=== PATIENT | female | born 2000 | race Caucasian/White ===

== ENCOUNTER 2022-05-28 08:51 | Emergency (ER) | payer OTHER, SELFPAY ==
[2022-05-28 09:03] VITALS: BP 114/73; PULSE 86; RESP 16; TEMP 36.8; O2SAT 100
--- NOTE | 2022-05-28 09:50 | ED.URI ---
HPI - URI/Sore Throat General Chief Complaint: Upper Respiratory Infection Stated Complaint: SORE THROAT/WHITE SPOTS IN THROAT Time Seen by Provider: 05/28/22 09:46 Source: patient Mode of arrival: ambulatory Limitations: no limitations History of Present Illness HPI Narrative: Patient presents today complaining of a 2 day history of sore throat, headache, body aches, and white spots in her throat. She currently rates pain 4/10 and has been taking Sudafed and cough drops. Pain increases with swallowing. Related Data Home Medications Medication Instructions Recorded Confirmed multivitamin (Daily Multi-Vitamin 1 tablet PO DAILY 03/14/21 05/28/22 tablet) viloxazine 200 mg capsule,extended 200 mg PO DAILY 03/18/22 05/28/22 release 24 hr (Qelbree) escitalopram oxalate 10 mg tablet 10 mg PO DIRECTED 05/28/22 05/28/22 Allergies Allergy/AdvReac Type Severity Reaction Status Date / Time codeine Allergy Rash Verified 05/28/22 09:51 Review of Systems Review of Systems: CONSTITUTIONAL: Denies fever, chills, or sweats.+ body aches EYES: Denies visual changes, redness, or discharge. ENT: Denies rhinorrhea, congestion, or otalgia.+ sore throat CARDIOVASCULAR: Denies chest pain, palpitations, or edema. RESPIRATORY: Denies cough or dyspnea. GASTROINTESTINAL: Denies abdominal pain, nausea, vomiting, or diarrhea. GENITOURINARY: Denies dysuria or hematuria. SKIN: Denies rash, itching, or wounds. MUSCULOSKELETAL: Denies back pain, joint pain, or myalgia. NEUROLOGIC: Denies numbness, tingling, or weakness.+ headache PSYCH: Denies depression or anxiety. [facility] Past Medical History Medical History ADHD Anxiety Herpes 2019 Family History Family History Grandparent Carcinoma of colon Heart attack Father High cholesterol Social History Social History Smoking status: Never smoker Alcohol intake: current Substance use: never Comments At time of signature, I have reviewed and agree with nursing past medical, surgical, social and family history unless otherwise noted. Please see nursing chart for further information. There is no relevant family history pertinent to the presenting complaint Exam Narrative: GENERAL: Well-appearing, well-nourished, and in no acute distress. HEAD: Normocephalic, atraumatic. EYES: EOMI. No redness or drainage. Conjunctivae normal. ENT: Mucous membranes pink and moist. Nares clear. No rhinorrhea. TMs normal bilaterally. Throat mildly erythematous edema exudate. Uvula midline. NECK: Normal AROM. Supple. No lymphadenopathy. CHEST: No respiratory distress. Clear to auscultation. HEART: Regular rate and rhythm. No murmur appreciated. Normal peripheral pulses. EXTREMITIES: Normal range of motion. No edema. SKIN: Warm, dry, no rash. Capillary refill normal. Normal skin turgor. NEURO: No focal deficits. Alert and oriented x3. Gait steady. PSYCH: Normal affect. No signs of depression or anxiety. Course Course Level of Care: Express Care Visit Vital Signs Vital signs: Vital Signs Temperature 98.2 F 05/28/22 09:03 Pulse Rate 86 05/28/22 09:03 Respiratory Rate 16 05/28/22 09:03 Blood Pressure 114/73 05/28/22 09:03 Pulse Oximetry 100 05/28/22 09:03 Oxygen Delivery Room Air 05/28/22 09:03 Temperature 98.2 F 05/28/22 09:03 Pulse Rate 86 05/28/22 09:03 Respiratory Rate 16 05/28/22 09:03 Blood Pressure 114/73 05/28/22 09:03 Pulse Oximetry 100 05/28/22 09:03 Oxygen Delivery Room Air 05/28/22 09:03 Reviewed MDM - URI/Sore Throat Differential Diagnosis Differential diagnosis: Likely upper respiratory infection, otitis media, viral infection, pharyngitis and other (Strep throat) Lab Data Attestation: I reviewed the patient's lab results. Lab
== END 2022-05-28 10:14 | disposition home or self-care (01) ==
PROVIDERS: Emergency Provider Nurse Practitioner; PCP Nurse Practitioner Family
DX: J02.8 Acute pharyngitis due to other specified organisms (principal); F41.9 Anxiety disorder, unspecified; F90.9 Attention-deficit hyperactivity disorder, unspecified type
CPT/HCPCS: 87081; 87804; 87880; 99213; G0463

== ENCOUNTER 2022-06-02 03:02 | Emergency (ER) | payer OTHER, SELFPAY ==
[2022-06-02 03:06] VITALS: BP 135/73; PULSE 103; RESP 18; TEMP 37.2; O2SAT 99
[2022-06-02 07:40] VITALS: BP 124/79; PULSE 90; RESP 15; TEMP 37.1; O2SAT 99
[2022-06-02 07:44] LABS: Strep Group A RT-PCR Not Detected (Negative)
--- NOTE | 2022-06-02 07:56 | ED.GENADULT ---
HPI - General Adult General Chief complaint: Dental/Oral Stated complaint: Sore throat Time Seen by Provider: 06/02/22 06:59 Source: patient Mode of arrival: ambulatory Limitations: no limitations History of Present Illness HPI narrative: 22-year-old with a history of depression here with complaints of sore throat for past 4 to 5 days. Patient states that she was seen at urgent care and had strep and influenza negative but since this morning his throat is more swollen. She also complains of fever. She denies any shortness of breath, cough, denies nausea or vomiting Onset (ago): day(s) (4) Location: mouth Severity: moderate Quality: aching Pain Consistency: constant Relieving factors: none Exacerbating factors: none Associated symptoms: denies other symptoms Related Data Home Medications Medication Instructions Recorded Confirmed multivitamin (Daily Multi-Vitamin 1 tablet PO DAILY 03/14/21 05/28/22 tablet) viloxazine 200 mg capsule,extended 200 mg PO DAILY 03/18/22 05/28/22 release 24 hr (Qelbree) escitalopram oxalate 10 mg tablet 10 mg PO DIRECTED 05/28/22 05/28/22 Allergies Allergy/AdvReac Type Severity Reaction Status Date / Time codeine Allergy Rash Verified 06/02/22 06:33 Review of Systems Review of Systems: All systems reviewed & are unremarkable except as noted in HPI and below Constitutional: Constitutional: Reports no additional constitutional complaints Eyes: Eyes: Reports no additional eye complaints ENT: Reports as per HPI Cardiovascular: Cardiovascular: Reports no additional cardiovascular complaints Respiratory: Respiratory: Reports no additional respiratory complaints Gastrointestinal: Gastrointestinal: Reports no additional gastrointestinal complaints Musculoskeletal: Musculoskeletal: Reports no additional musculoskeletal complaints Neurologic: Reports system reviewed and no additional complaints, except as documented PMFSH Past Medical History Medical History ADHD Anxiety Herpes 2019 Family History Family History Grandparent Carcinoma of colon Heart attack Father High cholesterol Social History Social History Smoking status: Never smoker Alcohol intake: current Substance use: never Exam Narrative: GENERAL: Well-appearing, well-nourished, and in no acute distress. HEAD: Normocephalic, atraumatic. EYES: PERRLA and EOMI. ENT: Nares clear, no rhinorrhea or epistaxis. Mucous membranes moist. Tonsils are erythematous and enlarged 2+ NECK: Supple. CHEST: Clear to auscultation. No respiratory distress. HEART: Regular rate and rhythm. No murmur heard. Normal peripheral pulses. EXTREMITIES: Normal range of motion. No edema. SKIN: Warm, dry, no rash. NEURO: No focal deficits. Alert and oriented x3. PSYCH: Normal mood and affect. Course Course Emergency Course: Inform patient about her results however her tonsils are enlarged and erythematous no obvious exudates or abscess will start on antibiotic. Vital Signs Vital signs: Vital Signs Temperature 37.2 C 06/02/22 03:06 Pulse Rate 103 H 06/02/22 03:06 Respiratory Rate 18 06/02/22 03:06 Blood Pressure 135/73 06/02/22 03:06 Pulse Oximetry 99 06/02/22 03:06 Oxygen Delivery Room Air 06/02/22 03:06 Temperature 37.1 C 06/02/22 07:40 Pulse Rate 90 06/02/22 07:40 Respiratory Rate 15 06/02/22 07:40 Blood Pressure 124/79 06/02/22 07:40 Pulse Oximetry 99 06/02/22 07:40 Oxygen Delivery Room Air 06/02/22 03:06 Medical Decision Making Vital Signs Vital Signs: Vital Signs Temperature 37.2 C 06/02/22 03:06 Pulse Rate 103 H 06/02/22 03:06 Respiratory Rate 18 06/02/22 03:06 Blood Pressure 135/73 06/02/22 03:06 Pulse Oximetry 99 06/02/22 03:06 Oxygen Delivery Room Air 06/02/22
[2022-06-02 08:28] LABS: Influenza A QL RT-PCR Negative (Negative); Influenza B QL RT-PCR Negative (Negative); RSV RNA, RT-PCR Negative (Negative); SARS-CoV-2 RNA PCR Negative
== END 2022-06-02 08:48 | disposition home or self-care (01) ==
PROVIDERS: Emergency Medicine; Emergency Provider Family Medicine; PCP Nurse Practitioner Family
DX: J02.9 Acute pharyngitis, unspecified (principal); Z20.822 Contact with and (suspected) exposure to COVID-19; F32.A Depression, unspecified; F41.9 Anxiety disorder, unspecified; F90.9 Attention-deficit hyperactivity disorder, unspecified type
CPT/HCPCS: 87637; 87651; 99283

== ENCOUNTER 2023-05-29 10:35 | Emergency (ER) | payer OTHER, SELFPAY ==
--- NOTE | 2023-05-29 10:51 | ED.URI ---
HPI - URI/Sore Throat General Chief Complaint: Upper Respiratory Infection Stated Complaint: Sore Throat Source: patient and RN notes reviewed History of Present Illness HPI Narrative: 23-year-old female presents to urgent care with complaints of a sore throat x1 week. Patient states she had fevers approximately 5 days ago but nothing since. Patient reports swollen lymph nodes in her neck. Denies any ear pain, chest pain, shortness of breath vomiting, or diarrhea. Related Data Home Medications Medication Instructions Recorded Confirmed multivitamin (Daily Multi-Vitamin 1 tablet PO DAILY 03/14/21 05/29/23 tablet) escitalopram oxalate 10 mg tablet 10 mg PO DIRECTED 05/28/22 05/29/23 viloxazine 200 mg capsule,extended 600 mg PO DAILY 05/05/23 05/29/23 release 24 hr (Qelbree) Allergies Allergy/AdvReac Type Severity Reaction Status Date / Time codeine Allergy Rash Verified 05/29/23 11:06 Review of Systems Review of Systems: CONSTITUTIONAL: Denies fever, chills, or sweats. EYES: Denies visual changes, redness, or discharge. ENT: Denies otalgia CARDIOVASCULAR: Denies chest pain, palpitations, or edema. RESPIRATORY: Denies cough or dyspnea. GASTROINTESTINAL: Denies abdominal pain, nausea, vomiting, or diarrhea. GENITOURINARY: Denies dysuria or hematuria. SKIN: Denies rash or itching. MUSCULOSKELETAL: Denies back pain, joint pain, or myalgia. NEUROLOGIC: Denies headache, numbness, or weakness. Pertinent positives per HPI. [facility] Past Medical History Medical History ADHD Anxiety Herpes 2019 Family History Family History Grandparent Carcinoma of colon Heart attack Father High cholesterol Social History Social History (Updated 05/05/23 @ 11:17 by Amara Hughes CMA) Smoking status: Never smoker Alcohol intake: current Substance use: never Lack of Transportation: No Lack of Food: Never True Current Housing: I Have Housing Concerned About Future Housing: No Difficulty Paying Gas/Electric Bills: No Difficulty Paying for Meds: No Currently Unemployed: No Education: Associate Degree Difficulty w/ Childcare or Family Care: No Comments At the time of my signature, I reviewed and agree with the nursing past medical, surgical, social, and family history. There is no relevant family history pertinent to the patient complaint. Exam Narrative: GENERAL: This is a well-nourished, well-developed patient, in no apparent distress. HEAD: normocephalic, atraumatic. EYES: Sclera clear/white. Vision is grossly intact. EARS: External ears normal, auditory canals clear and without drainage, TMs normal without perforation. Hearing grossly intact. NOSE: External nose normal with no obvious nasal discharge, nares without redness, no rhinorrhea. THROAT: Mucous membranes moist, posterior pharynx erythemic NECK: Neck supple, non-tender with lymphadenopathy. No masses or thyromegaly. CARDIOVASCULAR: Regular rate and rhythm without murmurs, gallops, or rubs. RESPIRATORY: Clear to auscultation. Breath sounds equal bilaterally. No wheezes, rales, or rhonchi. GASTROINTESTINAL: Abdomen soft, non-tender, nondistended. Bowel sounds are active. No hepato-splenomegaly, or palpable masses. No guarding. SKIN: warm, intact with no suspicious lesions or rash, good texture and turgor. NEURO: awake, alert, and oriented to person, place and time. There were no obvious focal neurologic abnormalities. Course Course Level of Care: Express Care Visit Vital Signs Vital signs: Vital Signs Temperature 99.3 F 05/29/23 10:59 Pulse Rate 114 H 05/29/23 10:59 Respiratory Rate 18 05/29/23 10:59 Blood Pressure 128/78 05/29/23 10:59 Pulse Oximetry 100 05/29/23 10:59 Oxygen Delivery Room Air 05/29/23 10:59 Temperature 99.3 F 05/29/23 10:59
[2023-05-29 10:59] VITALS: BP 128/78; PULSE 114; RESP 18; TEMP 37.4; O2SAT 100
== END 2023-05-29 11:37 | disposition home or self-care (01) ==
PROVIDERS: Emergency Provider Nurse Practitioner Family; PCP Nurse Practitioner Family
DX: J02.0 Streptococcal pharyngitis (principal); F41.9 Anxiety disorder, unspecified; F90.9 Attention-deficit hyperactivity disorder, unspecified type
CPT/HCPCS: 87880; 99213; G0463

== ENCOUNTER 2023-11-06 08:12 | Emergency (ER) | payer OTHER, SELFPAY ==
--- NOTE | 2023-11-06 08:15 | ED.URI ---
HPI - URI/Sore Throat General Chief Complaint: Upper Respiratory Infection Stated Complaint: Sore Throat Time Seen by Provider: 11/06/23 08:14 Source: patient Mode of arrival: ambulatory Limitations: no limitations History of Present Illness HPI Narrative: Is a 23-year-old female who presents with sore throat for 2 days along with mild congestion and body aches. 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 Denies any fever, chills, nausea, vomiting, diarrhea, cough. Related Data Home Medications Medication Instructions Recorded Confirmed multivitamin (Daily Multi-Vitamin 1 tablet PO DAILY 03/14/21 11/06/23 tablet) escitalopram oxalate 10 mg tablet 10 mg PO DIRECTED 05/28/22 11/06/23 levonorgestrel-ethinyl estradiol 1 tablet PO DAILY 11/06/23 11/06/23 0.1 mg-20 mcg tablet (Sronyx) valacyclovir 500 mg tablet 500 mg PO DAILY 11/06/23 11/06/23 viloxazine 200 mg capsule,extended 600 mg PO DAILY 11/06/23 11/06/23 release 24 hr (Qelbree) Allergies Allergy/AdvReac Type Severity Reaction Status Date / Time codeine AdvReac Mild Rash Verified 11/06/23 08:13 Review of Systems Review of Systems: All systems reviewed & are unremarkable except as noted in HPI and below Constitutional: Constitutional: Denies body ache(s), Denies chills, Denies fatigue, Denies fever(s), Denies headache(s), Denies malaise and Denies weakness Eyes: Eyes: Denies blurry vision, Denies itchy eyes and Denies loss of vision ENT: Denies otalgia, Denies headache(s), Reports nasal congestion, Denies sinus pain and Reports sore throat Cardiovascular: Cardiovascular: Denies chest pain, Denies irregular heart rhythm and Denies dyspnea Respiratory: Respiratory: Denies cough and Denies dyspnea Gastrointestinal: Gastrointestinal: Denies abdominal pain, Denies diarrhea, Denies nausea and Denies vomiting Musculoskeletal: Musculoskeletal: Denies back pain, Denies myalgias and Denies arthralgias Integumentary/Breasts: Skin/Breast: Denies pruritus and Denies rash Neurologic: Denies headache(s), Denies loss of vision and Denies weakness Psychiatric: Psychiatric: Reports no additional psychiatric complaints Endocrine: Endocrine: Denies fatigue Allergic/Immunologic: Allergic/Immunologic: Denies itchy eyes PMFSH Past Medical History Medical History ADHD Anxiety Herpes 2019 Family History Family History Grandparent Carcinoma of colon Heart attack Father High cholesterol Social History Social History Smoking status: Never smoker Alcohol intake: current Substance use: never Lack of Transportation: No Lack of Food: Never True Current Housing: I Have Housing Concerned About Future Housing: No Difficulty Paying Gas/Electric Bills: No Difficulty Paying for Meds: No Currently Unemployed: No Education: Associate Degree Difficulty w/ Childcare or Family Care: No Comments At time of signature, agree with nursing past medical, surgical, social and family history. There is no relevant family history pertinent to the presenting complaint. Exam Const: General: cooperative, healthy appearing, comfortable, no acute distress and well nourished Nutritional Appearance: well nourished Orientation/consciousness: patient oriented x3 Limitations: no limitations HENMT: Head: normal to inspection, normocephalic and atraumatic Ears: hearing grossly normal bilaterally, external ears normal, TM's normal bilaterally, EAC's normal and no periauricular adenopathy Face/Nose/Sinus: Normal external nose present, Abnormal mucous membranes and turbinates present erythematous bilateral and diffuse, normal facial exam, sinuses nontender and face symmetric Face and sinus: normal facial exam, sinuses nontender and face symmetric Mouth: Yes Normal oral an
[2023-11-06 08:25] VITALS: BP 132/79; PULSE 85; RESP 16; TEMP 36.9; O2SAT 100
== END 2023-11-06 08:43 | disposition home or self-care (01) ==
PROVIDERS: Emergency Provider Nurse Practitioner Family; PCP Nurse Practitioner Family
DX: J06.9 Acute upper respiratory infection, unspecified (principal); F41.9 Anxiety disorder, unspecified
CPT/HCPCS: 87081; 87880; 99213; G0463

== ENCOUNTER 2024-05-16 12:51 | Outpatient (CLI) | payer OTHER, SELFPAY ==
--- NOTE | ~2024-05-16 | US_ITS ---
US pelvic complete w TV Ordering provider: David Hoffmann MD History: . R10.2 - Pelvic and perineal pain . Comparison: None. Technique: Transabdominal and endovaginal ultrasound of the pelvis (Doppler ultrasound interrogation techniques used as needed for this exam.) FINDINGS: CERVIX: Normal. UTERUS: Measures 6.2x 4.5x 2.7 cm in length which is within normal limits and is anteverted. No myom etrial masses. Fluid is seen in the lower uterine segment and in the cervix. ENDOMETRIUM: Normal in thickness measuring 2 millimeter. No endometrial masses, or cysts. CUL DE SAC: No free fluid. RIGHT OVARY: Normal in size measuring 1.9x 1.7x 2.1 cm. Normal echotexture. Doppler vascular flow pre sent. LEFT OVARY: Normal in size measuring 2.1x 2.2x 2.4 cm. Normal echotexture. Doppler vascular flow pres ent. ADNEXA: Normal. No mass. IMPRESSION: Minimal fluid in the lower uterine segment and cervix. Clinical correlation advised Otherwise, normal pelvic ultrasound. Reviewed, dictated and finalized at location A. [facility] [employer] IMPRESSION: Minimal fluid in the lower uterine segment and cervix. Clinical correlation adv ised Otherwise, normal pelvic ultrasound.
== END 2024-05-16 12:52 | disposition home or self-care (01) ==
LOC: GOSHIMG 12:52
PROVIDERS: PCP Obstetrics & Gynecology; Visit Provider Obstetrics & Gynecology
DX: R10.2 Pelvic and perineal pain (principal)
CPT/HCPCS: 76830; 76856

== ENCOUNTER 2025-06-22 11:19 | Emergency (ER) | payer OTHER, SELFPAY ==
--- NOTE | ~2025-06-22 | XR_ITS ---
EXAMINATION: XR chest 1V portable DATE: 06/22/2025 11:34 INDICATION: Cough TECHNIQUE: A single frontal view of the chest was obtained. COMPARISON: None. FINDINGS: The lungs are clear. Heart shadow normal. Bones appear intact. IMPRESSION: 1. No focal acute process. Reviewed, dictated and finalized at location A. TGENOLOGIST IMPRESSION: 1. No focal acute process.
[2025-06-22 11:22] VITALS: BP 113/73; PULSE 117; RESP 20; TEMP 39.1; O2SAT 100
[2025-06-22 11:33] LABS: Add Urine Microscopic? YES; Appearance Urine Clear (Clear); Glucose Urine UA Negative (Negative); Leukocyte Esterase Ur Negative LEU/UL (Negative); Nitrate Urine Negative (Negative); Specific Grav Ur >= 1.030 (1.010-1.020)
[2025-06-22] MEDS: ACETAMINOPHEN 325 MG TABLET 650 MG PO (11:37)
[2025-06-22 12:02] LABS: Strep Group A RT-PCR NOT DETECTED (Negative)
[2025-06-22 12:10] LABS: Influenza A QL RT-PCR Positive (Negative); Influenza B QL RT-PCR Negative (Negative); RSV RNA, RT-PCR Negative (Negative); SARS-CoV-2 RNA PCR Negative (Negative)
--- NOTE | 2025-06-22 12:14 | ED.URI ---
HPI - URI/Sore Throat General Chief Complaint: Upper Respiratory Infection Stated Complaint: Fever/Respirtory Time Seen by Provider: 06/22/25 11:22 Source: patient Mode of arrival: ambulatory Limitations: no limitations History of Present Illness HPI Narrative: This is a 25-year-old female with no significant past medical history presents with cough congestion fever and chills with some no shortness of breath no nausea vomiting no abdominal pain no chest pain. MD elicited complaint: fever and cough Onset (ago): day(s) Severity: moderate Description of mucous: clear Able to tolerate fluids by mouth: Yes Exacerbating factors: nothing Related Data Home Medications ?Medication ?Instructions ?Recorded ?Confirmed ?Last Taken ?Type multivitamin (Daily Multi-Vitamin 1 tablet PO DAILY 03/14/21 06/16/25 Unknown History tablet) escitalopram oxalate 10 mg tablet 5 mg PO DAILY 05/10/24 06/16/25 Unknown History lisdexamfetamine 30 mg capsule 30 mg PO DAILY 05/10/24 06/16/25 Unknown History (Vyvanse) Allergies Allergy/AdvReac Type Severity Reaction Status Date / Time codeine AdvReac Mild Rash Verified 06/16/25 08:40 Review of Systems Review of Systems: All systems reviewed & are unremarkable except as noted in HPI and below PMFSH Past Medical History Medical History ADHD Anxiety Herpes 2019 Family History Family History Grandparent Carcinoma of colon Heart attack Father High cholesterol Social History Social History Smoking status: Never smoker Alcohol intake: current Substance use: never Lack of Transportation: No Lack of Food: Never True Current Housing: I Have Housing Concerned About Future Housing: No Difficulty Paying Gas/Electric Bills: No Difficulty Paying for Meds: No Currently Unemployed: No Education: Associate Degree Difficulty w/ Childcare or Family Care: No Exam Const: General: healthy appearing and no acute distress Nutritional Appearance: well nourished Orientation/consciousness: patient oriented x3 Limitations: no limitations HENMT: Head: normal to inspection Eyes: Conjunctivae: conjunctivae normal Pupils: Equal, round and reactive pupils present Neck: Neck: normal visual inspection Chest: Chest palpation & inspection: normal inspection of the chest Resp: Effort & Inspection: normal respiratory effort Auscultation: clear to auscultation bilaterally Cardio: Rate: regular rate Rhythm: regular rhythm GI: GI Palp: Yes Soft to palpation Auscultation: normal bowel sounds Skin: General skin exam: normal color Rashes: no rashes Neuro: General: patient oriented x3 and moves all extremities Extrem: General: normal to inspection, no clubbing, cyanosis or edema and no pedal edema Course Course Emergency Course: Medical decision making narrative: The patient was evaluated by myself in the emergency department. History obtained from the patient was an independent historian physical exam performed witnessed by nurse. Patient had a negative strep negative COVID was positive for influenza chest x-ray with no acute cardiopulmonary abnormalities. Will send prescriptions to patient's pharmacy including Tamiflu. Repeat assessment: Patient doing well on repeat exam with no acute distress Symptoms stable since arrival to the emergency department Vitals are stable Patient agrees with discussion and after shared medical decision making and agrees with discharge All questions answered to the patient's satisfaction Advised follow-up within 1 week for further evaluation with primary care. Vital Signs Vital signs: Vital Signs Temperature 39.1 C H 06/22/25 11:22 Pulse Rate 117 H 06/22/25 11:22 Respiratory Rate 20 06/22/25 11:22 Blood Pressure 113/73 06/22/25 11:22 Pulse Oximetry 100 06/22/25 11:22 Oxygen Delivery Room Air 06/22/25 11:22 Temperature 39.1 C H 06/22/25 11:22 Pulse Rate 117 H 06/22/25 11:22 Respiratory Rate 20 06/22/25 11:22 Blood Pressure 113/73 06/22/25 11:22 Pulse Oximetry 100 06/22/25 11:22 Oxygen Delivery Room Air 06/22/25 11:22 MDM Differential Diagnosis Differential Diagnosis: Influenza Lab Data Labs: Lab Results 06/22/25 Range/Units 11:26 Urine Color Yellow (Yellow) Urine Appearance Clear (Clear) Urine pH 5.5 (5.0-8.0) Ur Specific [place] >= 1.030 H (1.010-1.020) Urine Protein Trace H (Negative) Urine Glucose (UA) Negative (Negative) Urine Ketones 3+ H (Negative) Ur Blood (Man) 1+ H (Negative) Urine Nitrate Negative (Negative) Urine Bilirubin 1+ H (Negative) Urine Urobilinogen 0.2 (0.2-1.0) mg/dL Leukocyte Esterase Rfl Negative (Negative) REYES/UL Influenza A (RT-PCR) Positive A (Negative) Influenza B (RT-PCR) Negative (Negative) RSV (RT-PCR) Negative (Negative) SARS-CoV-2 RNA (RT-PCR) Negative (Negative) Group A Strep (PCR) Not detected (Negative) Imaging Data Radiologist's impression: ITS Impressions Chest X-Ray 06/22/25 11:38 IMPRESSION: 1. No focal acute process. Critical Care Time Critical Care Time Critical Care Time: No Discharge Plan Discharge Clinical Impression: Influenza Patient Disposition: Home Condition: Stable Instructions: Antibiotic Form, Influenza (ED) Additional Instructions: Advised patient to take medication as prescribed and follow up with primary within the next 1 week for evaluation and treatment. Patient Language: Greenlandic Prescriptions: New benzonatate 200 mg capsule 200 mg PO TID Qty: 20 0RF No Action multivitamin [Daily Multi-Vitamin] Tablet 1 tablet PO DAILY lisdexamfetamine [Vyvanse] 30 mg capsule 30 mg PO DAILY escitalopram oxalate 10 mg tablet 5 mg PO DAILY Rx Instructions: take 15 mg daily levonorgestrel-ethinyl estrad [Sronyx] 0.1-20 mg-mcg tablet 1 tablet PO DAILY Qty: 84 4RF Follow-up/Referrals: Alcira,ROBERT Sarmiento [Primary Care Provider, Unknown] Time of Disposition: 12:21
[2025-06-22 12:21] VITALS: BP 115/65; PULSE 94; RESP 18; O2SAT 98
[2025-06-22 12:26] VITALS: TEMP 38.9
--- OUTSIDE RECORDS SUMMARY | 2025-06-22 12:36 | XMS_ITS | Encounter Summary ---
Author Organization [facility] Healthcare Address [address] [place] [id number] Care Team Providers Care Costume Rental Clerk Name Role Phone Tianna Forrester NP Primary Care Provider [phone] Encounter Details Date Type Department Care Team (Latest Contact Info) Description 05/03/2025 Results Follow-Up [facility] Primary Care at [address] [id number] Tianna Forrester NP [address] [facility] [address] [place] [address] Lipid panel, Thyroid Function [place], Comprehensive metabolic panel, Additional followed-up results: 3 Social History Tobacco Use Types Packs/Day Years Used Date Smoking Tobacco: Former Vaping Smokeless Tobacco: Never PHQ-2 Answer Date Recorded PHQ-2 Total Score (If total score is 3 or more points, staff should administer the PHQ-9) 0 05/02/2025 Comments No Sex and Gender Information Value Date Recorded Sex Assigned at Not on file Legal 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
--- OUTSIDE RECORDS SUMMARY | 2025-06-22 12:36 | XMS_ITS | Clinical Summary ---
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 Gender Identity Not on file Sexual Orientation Not on file Plan of Treatment Health Maintenance Due Date Last Done Comments Hepatitis C Virus (HCV) Screening 2000 Influenza Immunization (#1) 03/06/202504/05, 04/03/2020, 05/07/2019, Additional history exists SARS-COV-2 Immunization (2024- season) 2025 08/28/2020, 07/31/2020 Respiratory Syncytial Virus (RSV) Immunization (Adult) (1 - 1-dose 75+ series) 2075 Hepatitis B Immunization Completed 001, 2000, 2000 Pneumococcal Immunization Combined Aged Out 06/11/2001, 2000, 2000 No longer eligible based on patient's age to complete this topic Varicella Immunization Completed 10/19/2009, 2000 DTaP/Tdap/Td Immunization Discontinued 2012, 12/30/2005, 03/13/2003, Additional history exists TdaP Immunization Completed 01/25/2013 Meningococcal Immunization (ACWY) Completed 03/30/2018, 01/25/2013 Human Papillomavirus (HPV) Immunization Completed 09/18/2020, 04/03/2020, 01/25/2013 Rotavirus Immunization Aged Out No lo nger eligible based on patient's age to complete this topic Insurance [employer] Care Teams Script Developer Relationship Specialty Start Date End Date Tianna Forrester APRN, GRADES 9 12 TUTOR 2 [facility] [address] [address] PCP - General Advanced Practice Nurse 07/02/21
--- OUTSIDE RECORDS SUMMARY | 2025-06-22 12:36 | XMS_ITS | Clinical Summary ---
Author Organization [facility] Address [address] [place] [address] Care Team Providers Care Director Of Graduate Medical Education Name Role Phone Sylvie Mulligan Primary Care Pr ovider Source Comments [facility],non-owned Affiliates and Associated Physician Practices is amultiple site organization consisting of ambulatory clinics and hospital sitesin [place], [place]. This disclosure is being madepursuant to the Care Everywhere program and may not contain all information available regarding this patient. Last updated 18.[facility] Allergies No known active allergies Medications * Be aware that medications may not be up to date on this document. Alwaysverify current medications with the patient. 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 Gender Identity Not on file Sexual Orientation Not on file Last Filed Vital Signs Vital Sign Reading Time Taken Comments Blood Pressure 112/62 06/03/2021 6:15 PM RADIO ELECTRONICS TECHNICIAN Pulse 97 06/03/2021 6:15 PM RADIO ELECTRONICS TECHNICIAN Temperature 36.8 C (98.3 F) 06/03/2021 6:15 PM RADIO ELECTRONICS TECHNICIAN Respiratory Rate 16 06/03/2021 6:15 PM RADIO ELECTRONICS TECHNICIAN Oxygen Saturation 98% 06/03/2021 6:15 PM RADIO ELECTRONICS TECHNICIAN Inhaled Oxygen Concentration - - Weight 59 kg (130 lb) 06/03/2021 6:15 PM RADIO ELECTRONICS TECHNICIAN Height 165.1 cm (5' 5) 06/03/2021 6:15 PM RADIO ELECTRONICS TECHNICIAN Body Mass Index 21.63 06/03/2021 6:15 PM RADIO ELECTRONICS TECHNICIAN Plan of Treatment Health Maintenance Due Date Last Done Comments HIV SCREENING 2015 HPV VACCINE (1 - 3-dose series) 2015 CHLAMYDIA/GONORRHEA SCREENING 2016 HEPATITIS C SCREENING 05/10/2018 DTAP/TDAP/TD VACCINES (1 - Tdap) 2019 HEPATITIS B VACCINE (1 of 3 - 19+ 3-dose series) 2019 DEPRESSION SCREENING 07/06/2024 COVID-19 VACCINE ( - 2024- season) 2025 08/28/2020, 07/31/2020 INFLUENZA VACCINE (#1) 2025 , 04/03/2020, 05/07/2019, Additional history exists ZOSTER VACCINE (1 of 2) 2050 HIB VACCINE Aged Out No longer eligi ble based on patient's age to complete this topic MENINGOCOCCAL (Group B) VACCINE SHARED DECISION-MAKING Aged Out No longer eligible based on patient's age to complete this topic MENINGOCOCCAL GROUPS A/C/Y/W VACCINE Aged Out No longer eligible based on patient's age to complete this topic PNEUMOCOCCAL VACCINE Aged Out No long er eligible based on patient's age to complete this topic Insurance [employer] Care Teams Director Of Graduate Medical Education Relationship Specialty Start Date End Date Sylvie Mulligan PA [address] [place] [address] PCP - General Physician Chemical Librarian 03/30/19
--- OUTSIDE RECORDS SUMMARY | 2025-06-22 12:36 | XMS_ITS | Clinical Summary ---
Author Organization [facility] [address] Address [address] [place] [address] Phone Care Team Providers Care Tower Director Name Role Phone Tianna Forrester NP Primary Care Provider [phone] Allergies Active Allergy Reactions Criticality Noted Date Comments Codeine Rash Medium 09/06/2021 Medications valACYclovir (VALTREX) 500 mg tablet 12/07/2020 Active escitalopram (LEXAPRO) 10 mg tablet TAKE 1 AND 1/2 TABLET BY MOUTH EVERY DAY 05/08/2024 Active Sronyx 0.1-20 mg-mcg per tablet Active dextroamphetami ne-amphetamine XR (ADDERALL XR) 10 mg 24 hr capsule Take 1 capsule (10 mg total) by mouth every morning Active Active Problems Problem Noted Date Diagnosed Date Therapeutic drug monitoring 04/29/2024 Assessment & Plan (04/29/2024 7:50 PM CDT): 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 Order from her for EkG. ECG 12 lead Date/Time: 04/29/2024 7:46 PM Performed by: Tianna Forrester NP Authorized by: Tianna Forrester NP Comparison: compared with previous ECG Rhythm: sinus rhythm Rate: normal Conduction: conduction normal ST Segments: ST segments normal T Waves: T waves normal Other: no other findings Clinical impression: normal ECG Comments: RVR, normal variant Copy given to patient Tinnitus, left ear 07/18/2022 Assessment & Plan (07/18/2022 9:08 AM EDITORIAL PROJECT MANAGER): Trial of OTC decongestant of choice. Notify our office of no improvement. Annual physical exam 04/22/2021 Assessment & Plan (05/02/2025 4:23 PM CDT): Orders: CBC with auto differential; Future Comprehensive metabolic panel; Future Lipid panel; Future Thyroid Function [place]; Future Assessment & Plan (04/29/2024 7:45 PM CDT): Patient Counseling: --Nutrition: Stressed importance of moderation in sodium/caffeine intake, saturated fat and cholesterol, caloric balance, sufficient intake of fresh fruits, vegetables, --Exercise: Stressed the importance of regular exercise. --Continue routine dental and vision visits --Immunizations reviewed and offered utd - -Routine labs/ screenings Labs reviewed Assessment & Plan (04/27/2023 8:34 AM CDT): Patient Counseling: --Nutrition: Stressed importance of moderation in sodium/caffeine intake, saturated fat and cholesterol, caloric balance, sufficient intake of fresh fruits, vegetables, --Exercise: Stressed the importance of regular exercise. --Continue routine dental and vision visits --Immunizations reviewed and offered Not up-to-date, recommended influenza, tdap, - -Routine labs/ screenings Labs are pending. Assessment & Plan (04/23/2022 8:29 AM CDT): Patient Counseling: --Nutrition: Stressed importance of moderation in sodium/caffeine intake, saturated fat and cholesterol, caloric balance, sufficient intake of fresh fruits, vegetables, --Exercise: Stressed the importance of regular exercise. --Continue routine dental and vision visits --Immunizations reviewed and offered- utd -Routine labs/ screenings ordered- had normal cbc, cmp and tsh done in January and these were reviewed. Assessment & Plan (04/22/2021 7:44 AM CDT): -Recommended: Healthy diet. Avoiding junk food/fast food. -30 minutes of exercise most days of the week. Increase to 45 minutes for weight loss. Immunizations: Up to date updated influenza today continue present diet with no restrictions, continue present plan, routine labs ordered, call if any problems Follow-up in 1 year. Resolved Problems Problem Noted Date Diagnosed Date Resolved Date Periorbital dermatitis 04/29/202405/02 Assessment & Plan (04/29/2024 7:49 PM CDT): Eladil given to use twice daily for 4-8 weeks. Stop all topical steroids. Information from uptodate printed for patient Viral upper respiratory tract infection 04/27/2023 04/29/2024 Assessment & Plan (04/27/2023 9:34 AM CDT): Can try otc's, including claritin D. If symptoms last or worsen over 10-14 days, then she may call for antibiotic at that time. Viral gastroenteritis 02/03/20232022 Assessment & Plan (02/03/2023 10:49 AM CDT): Viral Gastroenteritis: Push PO fluids as tolerated. Offer solids foods slowly and as tolerated. Expect spontaneous resolution in 10-15 days. Follow up if symptoms persist more than a total of seven days or as desired. Dysfunction of left eustachian tube 07/18/2022 05/02/2025 Assessment & Plan (07/18/2022 9:08 AM EDITORIAL PROJECT MANAGER): Trial of OTC decongestant of choice. Notify our office of no improvement. Periumbilical abdominal pain 01/15/2022 04/23/2022 Assessment & Plan (01/15/2022 4:14 PM CDT): Has been going on for 2 months, with worsening symptoms over the last couple of weeks. Concerning for decreasing appetite and intermittent nausea and vomiting. Will check labs and start with KUB. I believe it's all constipation. Urine dip and urine preg in office negative. Constipation seems to start shortly after the time she started strattera. Gave copy of constipation guidelines. Recommended starting with magnesium citrate, 1/2 bottle in am and 2nd half in evening if needed. Discussed following up with milk of magnesium in prune juice the next day if needed until soft stools. I also talked to her about then taking miralax on a daily basis to keep stools soft on a daily basis. If labs or x-rays shows anything concerning, will form plan accordingly. Pt aware. Acute tonsillitis due to oth er specified organisms 04/03/2020 04/22/2021 Assessment & Plan (04/03/2020 8:46 PM CDT): Will try augmentin to treat tonsillitis. I told her if throat does not improve over the next couple of weeks, then we will refer her to ENT. Pt voiced understand and agreed with plan of care. Knee pain 08/27/2017 04/23/2022 Assessment & Plan (04/22/2021 7:44 AM CDT): Will refer back to Orthopedics. Referral placed may take naproxen p.r.n. Encounters Date Type Department Care Team Description 05/03/2025 Results Follow-Up [facility] at [address] [address] Tianna Forrester NP Lipid panel, Thyroid Function [place], Comprehensive metabolic panel, Additional followed-up results: 3 05/02/2025 4:35 PM CDT Lab [address] [address] Annual physical exam 05/02/2025 4:00 PM CDT Office Visit [facility] at [address] [address] Tianna Forrester NP Annual physical exam (Primary Dx) 04/15/2025 Results Follow-Up [facility] at [place] [address] [place] [id number] Anne Coates, VIDAL Throat culture Throat 04/13/2025 4:14 PM CDT - 04/13/2025 11:59 PM CDT Hospital Encounter [address] [address] Viral respiratory infection Discharge Disposition: Discharge to home or self care 04/13/2025 3:30 PM CDT Office Visit [facility] [place] [address] [place] [address] Fariha Antony, RESIDENTIAL CARPET INSTALLER Viral respiratory infection (Primary Dx) from Last 3 Months Immunizations Immunization Administration Dates Next Due DTaP 5 Pertussis 12/30/2005, 3,01/19/2002,06/11,2000,2000 Flucelvax Influenza Quad 05/07/2019 HPV, Quadrivalent 01/25/2013 HPV9 09/18/2020,04/03/2020 Hep A, Pediatric 02/14/2004,03/13/2003 Hep B / HiB 06/11/2001,2000 Hep B, Adolescent or Pediatric 2000 Hib (HbOC) 03/13/2003,01/19/2002,2000 IPV 12/30/2005, 2,2000,10/23 Influenza, Quadrivalent, Spl it, Preservative Free, Intramuscular 04/27/2023,04/23/2022,04/22/2021,04/03 Influenza, Trivalent, Cell Culture-based MDCK, Preservative Free, Antibiotic Free, Intramuscular 05/07/2019 Influenza, Trivalent, Preser vative Free, Intramuscular 05/02/2025,04/29/2024 Influenza, Unspecified 02/03/2023(Deferr ed: Patient Refused),04/05/2022(Deferred: Patient Refused),04/05/2019 MMR 02/22/2010,10/19/2009 Meningococcal MCV4P (Menactra) 03/30/2018,2012 Moderna SARS-CoV-2 Monovalen t Vaccination (12+ YRS) 08/28/2020,07/31/2020 PPD TEST 01/01/2021 Pneumococcal Polysaccharide PPV23 06/11/2001,,2000 Tdap 04/27/2023,01/25/2013 Varicella 10/19/2009,06/11/2001 Surgical History Surgery Date Site/Laterality Comments NO PAST SURGERIES WISDOM TOOTH EXTRACTION 07/06/2021 - 08/05/2021 Medical History Medical History Date Comments HSV-1 (herpes 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 Anxiety Family History Medical History Relation Name Comments Hypertension Father Mahamed Jha Arthritis Mother Casi Armstrong Family history of arthritis - (Added by TW Conv) Other Mother Casi Armstrong Hip pain - (Add ed by TW Conv) Relation Name Status Comments Father Mahamed Jha Alive Mother Casi Armstrong Alive Social History Tobacco Use Types Packs/Day Years Used Date Smoking Tobacco: Former Vaping Smokeless Tobacco: Never Tobacco Cessation:Counseling Given: Not Answered PHQ-2 Answer Date Recorded PHQ-2 Total Score (If total score is 3 or more points, staff should administer the PHQ-9) 0 05/02/2025 Comments No Sex and Gender Information Value Date Recorded Sex Assigned at Not on file Legal Sex Female 3:11 AM EDITORIAL PROJECT MANAGER Gender Identity Not on file Sexual Orientation Not on file Last Filed Vital Signs Vital Sign Reading Time Taken Comments Blood Pressure 108/68 05/02/2025 4:12 PM CDT Pulse 68 05/02/2025 4:12 PM CDT Temperature 36.6 C (97.8 F) 05/02/2025 4:12 PM CDT Respiratory Rate 16 05/02/2025 4:12 PM CDT Oxygen Saturation 99% 05/02/2025 4:12 PM CDT Inhaled Oxygen Concentration - - Weight 65.2 kg (143 lb 12.8 oz) 05/02/2025 4:12 PM CDT Height 165.1 cm (5' 5) 05/02/2025 4:12 PM CDT Body Mass Index 23.93 05/02/2025 4:12 PM CDT Plan of Treatment Health Maintenance Due Date Last Done Comments Cervical Cancer Screening 2000 Hepatitis C Screening 2000 Covid-19 Vaccine ( season) 2025 08/28/2020, 07/31/2020 Depression Screening 05/02/2026 05/02/2025, 04/29/2024, 02/03/2023, Additional history exists Regular Well Visit/Exam 18-64 05/02/2026 05/02/2025, 04/29/2024, 04/27/2023, Additional history exists DTaP/Tdap/Td Vaccine (8 - Td or Tdap) 04/27/2033 04/27/2023, 01/25/2013, 12/30/2005, Additional history exists Hepatitis B Screening Completed 06/11/2001 , 2000, 2000 Pneumococcal vaccine <65 Aged Out 001, 2000, 2000 No longer eligible based on patient's age to complete this topic Varicella Vaccines Completed 10/19/2009, 06/11/2001 HPV Vaccines Completed 09/18/2020, 03/07, 01/25/2013 Influenza Vaccine Completed 05/02/2025, , 04/27/2023, Additional history exists Procedures Procedure Name Priority Date/Time Associated Diagnosis Comments EGFR Routine 05/02/2025 4:38 PM CDT Annual physical exam DIFFERENTIAL AUTO Routine 05/02/2025 4:3 8 PM CDT Annual physical exam CBC WITH AUTO DIFFERENTIAL Routine 05/02/2025 4:38 PM CDT Annual physical exam COMPREHENSIVE METABOLIC PANEL Routine 05/02/2025 4:38 PM CDT Annual physical exam THYROID FUNCTION CASCADE Routine 05/02/2025 4:38 PM CDT Annual physical exam LIPID PANEL Routine 05/02/2025 4:38 PM CDT Annual physical exam THROAT CULTURE Routine 04/13/2025 4:14 PM CDT Viral respiratory infection POCT RAPID STREP Routine 04/13/2025 3:52 PM CDT Viral respiratory infection from Last 3 Months Results * eGFR (05/02/2025 4:38 PM CDT) eGFR >90 >=60 mL/min/1. 73 m2 Comment: Interpretive Data Reference Interval Normal >/= 90 mL/min/1.73m2 Mildly decreased* 60 - 89 mL/min/1.73m2 Mildly to moderately decreased 45 - 59 mL/min/1.73m2 Moderately to severely decreased 30 - 44 mL/min/1.73m2 Severely decreased 15 - 29 mL/min/1.73m2 Kidney Failure < 15 mL/min/1.73m2 *Relative to young adult level Estimated glomerular filtration rate is determined by the 2020 CKD-EPI equation recommended by the National Kidney Foundation (A Unifying Approach to GFR Estimation: Recommendations of the NKF-ASK Task Force on Reassessing the Inclusion of Race in Diagnosing Kidney Disease, JASN 2020). The CKD-EPI equation should not be used for patients with unstable renal function and has not been validated in children and those over 70. Current interpretive data was last reviewed 2021. Blood 05/02/2025 4:38 PM CDT 05/02/2025 6:34 PM CDT Tianna Forrester NP LAB BLOOD ORDERABLES Final Re sult [facility] [address] Department [place] [address] * Differential, auto (05/02/2025 4:38 PM CDT) Pathologist [facility] Neutrophil abs 5.28 1.50 - 6.50 K/cumm Imm gran abs 0.02 0.00 - 0.10 K/cumm [facility] Lymphocyte abs 2.08 0.80 - 3.30 K/cumm [facility] Monocyte abs 0.56 0.20 - 0.80 K/cumm [facility] Eosinophil abs 0.26 0.00 - 0.50 K/cumm [facility] Basophil abs 0.04 0.00 - 0.10 K/cumm [facility] Neutrophil pct 64.1 % [facility] Comment: Interpretive Data Percent cell count reference ranges are not reported, since discordance with absolute values may lead to misinterpretation of CBC data. Current Interpretive Data was last revised on 2017. Imm gran pct 0.2 % [facility] Comment: Interpretive Data Percent cell count reference ranges are not reported, since discordance with absolute values may lead to misinterpretation of CBC data. Current Interpretive Data was last revised on 2017. Lymphocyte pct 25.2 % [facility] Comment: Interpretive Data Percent cell count reference ranges are not reported, since discordance with absolute values may lead to misinterpretation of CBC data. Current Interpretive Data was last revised on 2017. Monocyte pct 6.8 % [facility] Comment: Interpretive Data Percent cell count reference ranges are not reported, since discordance with absolute values may lead to misinterpretation of CBC data. Current Interpretive Data was last revised on 2017. Eosinophil pct 3.2 % [facility] Comment: Interpretive Data Percent cell count reference ranges are not reported, since discordance with absolute values may lead to misinterpretation of CBC data. Current Interpretive Data was last revised on 2017. Basophil pct 0.5 % [facility] Comment: Interpretive Data Percent cell count reference ranges are not reported, since discordance with absolute values may lead to misinterpretation of CBC data. Current Interpretive Data was last revised on 2017. Blood 05/02/2025 4:38 PM CDT 05/02/2025 6:34 PM CDT Tianna Forrester NP LAB BLOOD ORDERABLES Final Re sult Performing Organization Address [facility] Co de Phone Number [address] [place] [address] * Thyroid Function [place] (05/02/2025 4:38 PM CDT) Pathologist [facility] TSH 3.32 0.30 - 4.20 mcIUnit/mL Blood 05/02/2025 4:38 PM CDT 05/02/2025 6:34 PM CDT Tianna Forrester RESIDENTIAL CARPET INSTALLER LAB BLOOD ORDERABLES Final Re sult Performing Organization Address City/[facility] Co de Phone Number [address] [place] [address] * CBC with auto differential (05/02/2025 4:38 PM CDT) WBC 8.24 3.80 - 9.90 K/cumm Hgb 14.0 11.9 - 15.5 g/dL [facility] Hct 41.4 35.6 - 45.5 % [facility] Plt 271 150 - 400 K/cumm [facility] MPV 9.2 9.1 - 12.3 fL [facility] RBC 4.55 3.90 - 5.20 M/cumm [facility] MCV 91.0 81.3 - 96.4 fL [facility] MCH 30.8 27.1 - 33.3 pg [facility] MCHC 33.8 32.3 - 35.7 g/dL [facility] RDW CV 11.7 11.1 - 14.9 % [facility] RDW SD 38.8 35.7 - 48.1 fL [facility] NRBC abs 0.00 0.00 - 0.01 K/cumm [facility] Blood 05/02/2025 4:38 PM CDT 05/02/2025 6:34 PM CDT Tianna Forrester NP LAB BLOOD ORDERABLES Final Re sult [facility] [address] [facility] Department [place] [address] * Lipid panel (05/02/2025 4:38 PM CDT) Cholesterol 194 30 - 199 mg/dL Comment: Interpretive Data Ages < or = 19 years Acceptable: <170 mg/dL Borderline high: 170-199 mg/dL High: >or= 200 mg/dL Ages > or = 20 years Desirable: <200 mg/dL Borderline high: 200-239 mg/dL High: >or= 240 mg/dL Literature References: 1. Expert Panel on Integrated Guidelines for Cardiovascular Health and Risk Reduction in Children and Adolescents. Pediatrics 2011;128:S213 2. NCEP Expert Panel. Circulation 2004;110:227 Current Interpretive Data was last revised on 2018. Triglycerides 84 <=149 mg/dL [facility] Comment: Interpretive Data Ages < or = 9 years Acceptable: <75 mg/dL Borderline high: 75-99 mg/dL High: >or= 100 mg/dL Ages 10 to 20 years Acceptable: <90 mg/dL Borderline high: 90-129 mg/dL High: >or= 130 mg/dL Ages > or = 20 years Desirable: <150 mg/dL Borderline high: 150-199 mg/dL High: 200-499 mg/dL Very high: >or= 499 mg/dL Literature References: 1. Expert Panel on Integrated Guidelines for Cardiovascular Health and Risk Reduction in Children and Adolescents. Pediatrics 2011;128:S213 2. NCEP Expert Panel. Circulation 2004;110:227 Current Interpretive Data was last revised on 2018. HDL 55 >=40 mg/dL [facility] Comment: Interpretive Data Ages < or = 19 years Acceptable: >45 mg/dL Borderline low: 40-45 mg/dL Low: <40 mg/dL Ages > or = 20 years Desirable: >or= 60 mg/dL Low: <40 mg/dL Literature References: 1. Expert Panel on Integrated Guidelines for Cardiovascular Health and Risk Reduction in Children and Adolescents. Pediatrics 2011;128:S213 2. NCEP Expert Panel. Circulation 2004;110:227 Current Interpretive Data was last revised on 2018. LDL, calculated 124 <=129 mg/dL [facility] Comment: Interpretive Data Ages < or = 19 years Acceptable: <110 mg/dL Borderline high: 110-129 mg/dL High: >or= 130 mg/dL Ages > or = 20 years Optimal: <100 mg/dL Near optimal: 100-129 mg/dL Borderline high: 130-159 mg/dL High: >160 mg/dL Calculated using the Nikolas LDL-C estimating equation. This equation was implemented on 2024. Prior to this date LDL-C was estimated using the Friedewald equation. Literature References: 1. Expert Panel on Integrated Guidelines for Cardiovascular Health and Risk Reduction in Children and Adolescents. Pediatrics 2011;128:S213 2. NCEP Expert Panel. Circulation 2004;110:227 3. Nikolas Donnelly al. FABIOLA Cardiol. 2020 November 03;5(5):540-548. doi: 10.1001/jamacardio.2020.0013 Current Interpretive Data was last revised on 2024. Non-HDL Cholesterol 139 mg/dL [facility] Comment: Interpretive Data Ages < or = 19 years Acceptable: <120 mg/dL Borderline high: 120-144 mg/dL High: >145 mg/dL Ages > or = 20 years When triglycerides are >200 mg/dL, Non-HDL cholesterol is a secondary target of therapy with treatment goals that are 30 mg/dL greater than the LDL cholesterol target. Literature References: 1. Expert Panel on Integrated Guidelines for Cardiovascular Health and Risk Reduction in Children and Adolescents. Pediatrics 2011;128:S213 2. NCEP Expert Panel. Circulation 2004;110:227 Current Interpretive Data was last revised on 2018. Chol/HDL ratio 4 [facility] Blood 05/02/2025 4:38 PM CDT 05/02/2025 6:34 PM CDT Tianna Forrester NP LAB BLOOD ORDERABLES Final Re sult [facility] [address] Department [place] [address] * Comprehensive metabolic panel (05/02/2025 4:38 PM CDT) Sodium 138 135 - 145 mmol/L Potassium, pl 4.3 3.3 - 4.9 mmol/L [facility] Chloride 102 97 - 110 mmol/L [facility] CO2 26 22 - 32 mmol/L [facility] Anion gap 10 2 - 15 mmol/L [facility] BUN 20 6 - 25 mg/dL [facility] Creatinine 0.71 0.60 - 1.10 mg/dL [facility] Glucose 91 70 - 199 mg/dL [facility] Comment: Interpretive Data Fasting glucose >/= 126 mg/dl is diagnostic for diabetes. Fasting is defined as no caloric intake for at least 8 hours. Fasting glucose between 100 mg/dl to 125 mg/dl is diagnostic of prediabetes. In a patient with classic symptoms of hyperglycemia or hyperglycemic crisis, a random glucose >/= 200 mg/dl is diagnostic for diabetes. In the absence of unequivocal hyperglycemia, results should be confirmed by repeat testing. The classification and Diagnosis of Diabetes Diabetes Care 2021; 46: S19-S40. Current interpretive data was last revised 2022. Calcium 9.8 8.5 - 10.3 mg/dL [facility] Bilirubin, total 0.2 0.1 - 1.2 mg/dL [facility] Protein, pl 7.3 6.5 - 8.5 g/dL [facility] Albumin 4.5 3.5 - 5.0 g/dL [facility] Alk phos 67 40 - 130 Units/L [facility] ALT 8 7 - 45 Units/L [facility] AST 21 10 - 45 Units/L [facility] Blood 05/02/2025 4:38 PM CDT 05/02/2025 6:34 PM CDT Tianna Forrester RESIDENTIAL CARPET INSTALLER LAB BLOOD ORDERABLES Final Re sult [facility] [address] [facility] Department [place] [address] * Throat culture Throat (04/13/2025 4:14 PM CDT) Report Final Report: No growth of pathogens. Comment:Testing performed by : [facility], [address] [place]., [address] Throat 04/13/2025 4:14 PM CDT 04/13/2025 11:53 PM CDT Narrative [facility] - 04/14/2025 8:21 PM CDT Testing performed by [facility] Microbiology Laboratory ([phone]). Fariha Antony RESIDENTIAL CARPET INSTALLER LAB MICROBIOLOGY - GENERAL ORD ERABLES Final Result Performing Organization Address City/[facility]/ZIP Co de Phone Number [facility] [address] [place] [address] * POCT rapid strep A (04/13/2025 3:52 PM CDT) Rapid Strep A, POC Negative Negative Swab 04/13/2025 3:52 PM CDT Fariha Antony RESIDENTIAL CARPET INSTALLER POINT OF CARE TEST ORDERABLES Final Result from Last 3 Months Insurance [facility] HMO HEALTHCARE HMO HEALTHCARE HMO [facility] PPO Care Teams Tower Director Relationship Specialty Start Date End Date Tianna Forrester NP [address] [address] PCP - General Family Medicine 04/03/20
--- OUTSIDE RECORDS SUMMARY | 2025-06-22 13:01 | XMS_ITS | Clinical Summary ---
Author Organization [facility] Address [address] [place] [address] Care Team Providers Care Yacht Captain Name Role Phone Sylvie Mulligan Primary Care Pr ovider Source Comments [facility],non-owned Affiliates and Associated Physician Practices is amultiple site organization consisting of ambulatory clinics and hospital sitesin [place], [place], [place] and [place]. This disclosure is being madepursuant to the Care Everywhere program and may not contain all information available regarding this patient. Last updated 18.[facility] Allergies No known active allergies Medications * [...] on file Legal Sex Female 10:42 AM BANKING ATTORNEY Gender Identity Not on file Sexual Orientation Not on file Last Filed Vital Signs Vital Sign Reading Time Taken Comments Blood Pressure 112/62 06/03/2021 6:15 PM BANKING ATTORNEY Pulse 97 06/03/2021 6:15 PM BANKING ATTORNEY Temperature 36.8 C (98.3 F) 06/03/2021 6:15 PM BANKING ATTORNEY Respiratory Rate 16 06/03/2021 6:15 PM BANKING ATTORNEY Oxygen Saturation 98% 06/03/2021 6:15 PM BANKING ATTORNEY Inhaled Oxygen Concentration - - Weight 59 kg (130 lb) 06/03/2021 6:15 PM BANKING ATTORNEY Height 165.1 cm (5' 5) 06/03/2021 6:15 PM BANKING ATTORNEY Body Mass Index 21.63 06/03/2021 6:15 PM BANKING ATTORNEY Plan of Treatment Health Maintenance Due Date [...] complete this topic Insurance [employer] Care Teams Yacht Captain Relationship Specialty Start Date End Date Sylvie Mulligan PA [address] [place] [phone] PCP - General Physician Underwriting Consultant 03/30/19
--- OUTSIDE RECORDS SUMMARY | 2025-06-22 13:01 | XMS_ITS | Clinical Summary ---
Author Organization [facility] [address] Address [address] [place] [address] Phone Care Team Providers Care Capacitor Inspector Name Role Phone Tianna Forrester NP Primary Care Provider [phone] Allergies Active Allergy Reactions Criticality Noted Date [...] Plan (04/29/2024 7:50 PM CDT): Mental health CIGAR WRAPPER started vyvanse. Order from her for EkG. 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 Notify our office of no improvement. 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 Notify [...] Department Care Team Description 05/03/2025 Results Follow-Up [facility] Primary Care at [address] [address] Tianna Forrester NP Lipid panel, Thyroid Function [place], Comprehensive metabolic panel, Additional followed-up results: 3 05/02/2025 4:35 PM CDT Lab [address] [address] Annual physical exam 05/02/2025 4:00 PM CDT Office Visit [facility] Primary Care at [address] [address] Tianna Forrester NP Annual physical exam (Primary Dx) 04/15/2025 Results Follow-Up [facility] [place] [address] [place] [id number] Anne Coates, VIDAL Throat culture Throat 04/13/2025 4:14 PM CDT - 04/13/2025 11:59 PM CDT Hospital Encounter [address] [address] Viral respiratory infection Discharge Disposition: Discharge to home or self care 04/13/2025 3:30 PM CDT Office Visit [facility] [place] [address] [place] [address] Fariha Antony, CIGAR WRAPPER Viral respiratory infection (Primary Dx) from Last [...] on file Legal 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 Gender Identity Not on file Sexual [...] NP LAB BLOOD ORDERABLES Final Re sult [facility] [address] [facility] Department [place] [address] * Differential, auto (05/02/2025 4:38 PM CDT) Pathologist [facility] Neutrophil abs 5.28 1.50 - 6.50 K/cumm Imm gran abs 0.02 0.00 - 0.10 K/cumm [facility] Lymphocyte abs 2.08 0.80 - 3.30 K/cumm [facility] Monocyte abs 0.56 0.20 - 0.80 K/cumm [facility] Eosinophil abs 0.26 0.00 - 0.50 K/cumm [facility] Basophil abs 0.04 0.00 - 0.10 K/cumm [facility] Neutrophil pct 64.1 % [facility] Comment: Interpretive Data Percent cell count reference ranges are not reported, since discordance with absolute values may lead to misinterpretation of CBC data. Current Interpretive Data was last revised on 2017. Imm gran pct 0.2 % [facility] Comment: Interpretive Data Percent cell count reference ranges are not reported, since discordance with absolute values may lead to misinterpretation of CBC data. Current Interpretive Data was last revised on 2017. Lymphocyte pct 25.2 % [facility] Comment: Interpretive Data Percent cell count reference ranges are not reported, since discordance with absolute values may lead to misinterpretation of CBC data. Current Interpretive Data was last revised on 2017. Monocyte pct 6.8 % [facility] Comment: Interpretive Data Percent cell count reference ranges are not reported, since discordance with absolute values may lead to misinterpretation of CBC data. Current Interpretive Data was last revised on 2017. Eosinophil pct 3.2 % [facility] Comment: Interpretive Data Percent cell count reference ranges are not reported, since discordance with absolute values may lead to misinterpretation of CBC data. Current Interpretive Data was last revised on 2017. Basophil pct 0.5 % [facility] Comment: Interpretive Data Percent cell count reference ranges are not reported, since discordance with absolute values may lead to misinterpretation of CBC data. Current Interpretive Data was last revised on 2017. Blood 05/02/2025 4:38 PM CDT 05/02/2025 6:34 PM CDT Tianna Forrester NP LAB BLOOD ORDERABLES Final Re sult Performing Organization Address [facility] Co de Phone Number [address] [place] [address] * Thyroid Function [place] (05/02/2025 4:38 PM CDT) Pathologist [facility] TSH 3.32 0.30 - 4.20 mcIUnit/mL Blood 05/02/2025 4:38 PM CDT 05/02/2025 6:34 PM CDT Tianna Forrester CIGAR WRAPPER LAB BLOOD ORDERABLES Final Re sult Performing Organization Address City/[facility] Co de Phone Number [address] [place] [address] * CBC with auto differential (05/02/2025 4:38 PM CDT) WBC 8.24 3.80 - 9.90 K/cumm Hgb 14.0 11.9 - 15.5 g/dL [facility] Hct 41.4 35.6 - 45.5 % [facility] Plt 271 150 - 400 K/cumm [facility] MPV 9.2 9.1 - 12.3 fL [facility] RBC 4.55 3.90 - 5.20 M/cumm [facility] MCV 91.0 81.3 - 96.4 fL [facility] MCH 30.8 27.1 - 33.3 pg [facility] MCHC 33.8 32.3 - 35.7 g/dL [facility] RDW CV 11.7 11.1 - 14.9 % [facility] RDW SD 38.8 35.7 - 48.1 fL [facility] NRBC abs 0.00 0.00 - 0.01 K/cumm [facility] Blood 05/02/2025 4:38 PM CDT 05/02/2025 6:34 PM CDT Tianna Forrester NP LAB BLOOD ORDERABLES Final Re [facility]ult [facility] [address] [facility] Department [place] [address] * Lipid panel (05/02/2025 4:38 PM CDT) [...] revised on 2018. Triglycerides 84 <=149 mg/dL [facility] Comment: Interpretive Data Ages < or = [...] last revised on 2018. Chol/HDL ratio 4 [facility] Blood 05/02/2025 4:38 PM CDT 05/02/2025 6:34 PM CDT Tianna Forrester NP LAB BLOOD ORDERABLES Final Re sult [facility] [address] [facility] Department [place] [address] * Comprehensive metabolic panel (05/02/2025 4:38 PM CDT) Sodium 138 135 - 145 mmol/L Potassium, pl 4.3 3.3 - 4.9 mmol/L [facility] Chloride 102 97 - 110 mmol/L [facility] CO2 26 22 - 32 mmol/L [facility] Anion gap 10 2 - 15 mmol/L [facility] BUN 20 6 - 25 mg/dL [facility] Creatinine 0.71 0.60 - 1.10 mg/dL [facility] Glucose 91 70 - 199 mg/dL [facility] Comment: Interpretive Data Fasting glucose >/= 126 [...] 2022. Calcium 9.8 8.5 - 10.3 mg/dL [facility] Bilirubin, total 0.2 0.1 - 1.2 mg/dL [facility] Protein, pl 7.3 6.5 - 8.5 g/dL [facility] Albumin 4.5 3.5 - 5.0 g/dL [facility] Alk phos 67 40 - 130 Units/L [facility] ALT 8 7 - 45 Units/L [facility] AST 21 10 - 45 Units/L [facility] Blood 05/02/2025 4:38 PM CDT 05/02/2025 6:34 PM CDT Tianna Forrester CIGAR WRAPPER LAB BLOOD ORDERABLES Final Re sult [facility] [address] [facility] Department [place] [address] * Throat culture Throat (04/13/2025 4:14 PM CDT) Report Final Report: No growth of pathogens. Comment:Testing performed by : [facility], [address] [place]., [address] Throat 04/13/2025 4:14 PM CDT 04/13/2025 11:53 PM CDT Narrative [facility] - 04/14/2025 8:21 PM CDT Testing performed by [facility] Microbiology Laboratory ([phone]). Fariha Antony CIGAR WRAPPER LAB MICROBIOLOGY - GENERAL ORD ERABLES Final Result Performing Organization Address City/[facility]/ZIP Co de Phone Number [facility] [phone] Department [place] [address] * POCT rapid strep A (04/13/2025 3:52 PM CDT) Rapid Strep A, POC Negative Negative Swab 04/13/2025 3:52 PM CDT Fariha Antony CIGAR WRAPPER POINT OF CARE TEST ORDERABLES Final Result from Last 3 Months Insurance [facility] HMO HEALTHCARE HMO HEALTHCARE HMO [facility] PPO Care Teams Capacitor Inspector Relationship Specialty Start Date End Date Tianna Forrester NP [address] [address] PCP - General Family Medicine 04/03/20
--- OUTSIDE RECORDS SUMMARY | 2025-06-22 13:01 | XMS_ITS | Encounter Summary ---
Author Organization [facility] Healthcare Address [address] [place] [address] Care Team Providers Care Dental Detail Representative Name Role Phone Tianna Forrester NP Primary Care Provider Encounter Details Date Type Department Care Team (Latest Contact Info) Description 05/03/2025 Results Follow-Up [facility] Primary Care at [address] [address] Tianna Forrester NP [address] [facility] [address] [place] [address] Lipid panel, Thyroid Function [place], Comprehensive metabolic panel, Additional followed-up results: 3 [...] on file 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
--- OUTSIDE RECORDS SUMMARY | 2025-06-22 13:01 | XMS_ITS | Clinical Summary ---
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
== END 2025-06-22 12:26 | disposition home or self-care (01) ==
PROVIDERS: Emergency Provider Emergency Medicine; PCP Nurse Practitioner Family
DX: J11.1 Influenza due to unidentified influenza virus with other respiratory manifestations (principal)
CPT/HCPCS: 71045; 81001; 87637; 87651; 99283; A9270